=== PATIENT | female | born 1945 | race Caucasian/White ===

== ENCOUNTER → 2018-03-05 | Outpatient (CLI) | payer MEDICARE, OTHER | LOC: M.RAD 09:50 | DX: R92.1 Mammographic calcification found on diagnostic imaging of breast (principal); Z85.3 Personal history of malignant neoplasm of breast ==

== ENCOUNTER → 2021-01-23 | Outpatient (CLI) | payer MEDICARE, OTHER | LOC: M.RAD 09:27 | PROVIDERS: ATTEND Internal Medicine Hematology & Oncology | DX: Z12.31 Encounter for screening mammogram for malignant neoplasm of breast (principal) ==